=== PATIENT | female | born 1990 | race Caucasian/White ===

== ENCOUNTER 2022-11-11 15:10 | Emergency (ER) | payer MEDICAID, SELFPAY ==
[2022-11-11 15:11] VITALS: BP 138/75; PULSE 109; RESP 18; TEMP 35.9; O2SAT 94; BMI 21.2
--- NOTE | 2022-11-11 15:17 | EDS_ITS ---
HPI History of Present Illness Chief Complaint: Wound Informant: patient Narrative Narrative: Patient presents with 2 complaints. She has history of psychiatric illness and opioid problems and is treated for both of these. She has had problems with recurrent staph infections in many areas. Patient presents with about 2 days of breaking out on the face with some weeping lesions. They are not abscessing. They burn slightly. They are consistent with prior episodes of staph infections. She has no nausea vomiting fever chills or systemic symptoms. No nasal drainage. No sore throat. No dental pain. Patient also complains of some mild dysuria and slight odor of the urine for about 1 day. She states it valle just a small amount. No discharge. Last menstrual cycle was about the October and was normal timing. No pelvic pain. No flank or back pain. Again no nausea vomiting fevers or chills. She has had problems with UTIs in the past. Both of these individual problems are currently unstable. They are slowly worsening this prompted her arrival to the emergency department. She has benefited from treatment of both in the past. [facility] Medical History (Updated 11/11/22 @ 16:[address] Patrice Webb MD) Anxiety Bipolar disorder Depression Smoker Substance abuse Home Medications brexpiprazole 2 mg tablet (Rexulti) 2 mg PO DAILY 11/11/22 [History Last Taken Unknown] buprenorphine 100 mg/0.5 mL solution,exten.rel.subcutaneous syringe (Sublocade) 100 mg subcut QMONTH 11/11/22 [History Last Taken Unknown] cephalexin 500 mg capsule 500 mg PO Q6 #40 caps 11/11/22 [Rx Last Taken Unknown] clindamycin HCl 300 mg capsule (Cleocin HCl) 300 mg PO Q6H #40 caps 11/11/22 [Rx Last Taken Unknown] lamotrigine 150 mg tablet (Lamictal) 150 mg PO DAILY 11/11/22 [History Last Taken Unknown] mupirocin 2 % topical ointment 1 applic topical BID 7 days #15 grams 11/11/22 [Rx Last Taken Unknown] Allergy/AdvReac Type Severity Reaction Status Date / Time sulfamethoxazole Allergy Vomiting Verified 11/11/22 15:11 [From Bactrim] trimethoprim [From Bactrim] Allergy Vomiting Verified 11/11/22 15:11 Social History Smoking Status: Current every day smoker tobacco type: cigarettes ROS ROS ED ROS Narrative Negative other than recorded. Pertinent negatives are also listed Constitutional Constitutional ED: Denies fever(s) ENT ENT ED: Denies ear pain, rhinorrhea or sore throat Cardiovascular Cardiovascular: Denies chest pain or palpitations Respiratory/Chest Respiratory/Chest: Denies cough or dyspnea Gastrointestinal Gastrointestinal: Denies abdominal pain, diarrhea, nausea or vomiting Genitourinary Genitourinary ED: Reports dysuria and urinary frequency Musculoskeletal Musculoskeletal: Denies back pain or myalgias Integumentary Reports rash Endocrine Endocrinology: Denies polydipsia or polyuria Allergic/Immunologic Allergic/Immunologic ED: Denies urticaria EXAM Physical Exam Narrative Exam Narrative: Patient awake alert no acute distress. HEENT exam shows multiple areas with some crusted lesions on both sides of the face diffusely. These are not vesicular. None of these are abscess. No dental pain. Mucous membranes are normal without thrush. No cervical lymphadenopathy. Lungs are clear. Heart regular. No abdominal tenderness. No notable suprapubic tenderness. No CVA tenderness. Skin exam as above in the face. Otherwise normal. Patient awake alert appropriate. Const Vital Signs: 11/11/22 15:11 Temperature 96.7 F L Temperature Source Temporal Pulse Rate 109 H Respiratory Rate 18 Blood Pressure 138/75 H Blood Pressure Mean 96 Pulse Ox 94 Oxygen Delivery Method Room Air MDM MDM MDM Narrative Medical decision making narrative: Urine showed negative . It was positive for nitrites, leukocyte Estrace and was cloudy. It was a clean-catch. There were not a lot of white cells but she has multiple other indications of UTI on the urine and she has symptoms. I think treating her staph with both clindamycin and cephalexin is dual therapy should be appropriate for her staff and should treat any early UTI. Weeks plain times to follow-up. Because she has had this is a recurrent problem we will also have her use mupirocin ointment on the lesions and just inside the nasal passage for about a week. We discussed reasons to return. Although the patient's heart rate was a bit up when she comes in and is now down. I do not think this represents sepsis. I do not think she needs further blood work cultures lactate. She is awake alert nontoxic. She is not having nausea vomiting fevers chills or flank pain. She is able to eat and drink without vomiting. I think outpatient therapy and the work-up that is done is appropriate. Lab Data Attestation: I reviewed the patient's lab results. Labs: Laboratory Results - last 24 hr 11/11/22 15:20 Urine Color Straw Urine Clarity Cloudy Urine pH 8.0 Ur Specific [place] 1.010 Urine Protein 30 H Urine Glucose (UA) Normal Urine Ketones Negative Urine Occult Blood Negative Urine Nitrite Positive H Urine Bilirubin Negative Urine Urobilinogen Normal Ur Leukocyte Esterase 500 H Urine RBC 0 SEEN Urine WBC 0-5 SEEN Ur Squamous Epith Cells 0-5 SEEN Amorphous Sediment 2+ Urine Bacteria RARE Urine Mucus 0 SEEN Urine Test Negative Discharge Plan Triage Chief Complaint: Wound Other Complaint: Complaint ED Provider: Patrice Webb Dx/Rx/DC Orders Clinical Impression: Infection, skin, staph, UTI (urinary tract infection) Instructions: Urinary Tract Infections in Women, Staph MRSA Prescriptions: New clindamycin HCl [Cleocin HCl] 300 mg capsule 300 mg PO Q6H Qty: 40 0RF cephalexin [cephalexin] 500 mg capsule 500 mg PO Q6 Qty: 40 0RF mupirocin 2 % ointment 1 applic topical BID 7 Days Qty: 15 0RF No Action lamotrigine [Lamictal] 150 mg Tablet 150 mg PO DAILY Rexulti 2 mg Tablet 2 mg PO DAILY Sublocade 100 mg/0.5 mL Solution, Extended Rel Syringe 100 mg SUBCUT QMONTH Primary Care Provider: MATTHEW NASCIMENTO Referrals: NOT,DEFINED [Non-Staff] - Activity Restrictions/Additional Instructions: Follow-up with your primary physician, Dr. Nascimento if not improving in 3 days. Disposition Disposition: Home, Self Care
[2022-11-11 15:33] LABS: Mucous, Urine 0 SEEN /hpf (<or=2+); Red Blood Cells-Urine 0 SEEN /hpf (0-5)
[2022-11-11 15:41] LABS: Color, Urine Straw (Yellow); Glucose, Dipstick Normal (Normal); Ketone-Dipstick Negative (Negative); Leukocyte Esterase-Dipstick 500 /ul (Negative); Nitrite-Dipstick Positive (Negative); Occult Blood-Urine Negative /ul (Negative); Protein-Dipstick 30 mg/dl (Negative); Urine Bilirubin Dipstick Negative (Negative); Urine Clarity Cloudy (Clear); Urine Urobilinogen Normal (Normal)
[2022-11-11 15:50] LABS: Amorphous Sediment 2+; Bacteria RARE /hpf (None Seen); Squamous Epithelial Cells - UA 0-5 SEEN /hpf (5-10); White Blood Cells 0-5 SEEN /hpf (0-5)
[2022-11-11 15:51] LABS: Internal QC Validated? YES +Cl - CLEAR BKGD; Pregnancy, Urine Negative Negative
== END 2022-11-11 16:21 | disposition home or self-care (01) ==
PROVIDERS: Emergency Provider Emergency Medicine; Visit Provider Emergency Medicine
DX: N39.0 Urinary tract infection, site not specified (principal); F31.9 Bipolar disorder, unspecified; L08.9 Local infection of the skin and subcutaneous tissue, unspecified; B95.8 Unspecified staphylococcus as the cause of diseases classified elsewhere; F17.210 Nicotine dependence, cigarettes, uncomplicated; F41.9 Anxiety disorder, unspecified
CPT/HCPCS: 81001; 81025; 99283

== ENCOUNTER 2023-02-10 15:56 | Emergency (ER) | payer MEDICAID, SELFPAY ==
[2023-02-10 15:57] VITALS: BP 120/74; PULSE 77; RESP 17; TEMP 36.1; O2SAT 100; BMI 21.7
--- NOTE | 2023-02-10 16:14 | EDS_ITS ---
HPI History of Present Illness Chief Complaint: Wound Detail of Chief Complaint: Staph infection involving dorsum of right hand, left side of face and mid m Informant: patient Onset/Context/Timing Onset: Days (Onset 2 days ago) Context: Sudden Onset Timing: Continuous Quality: Redness, induration Location: Dorsum of hand, left side of face and left thigh Current Severity: Mild Maximum Severity: Mild Worsened by: Scratching and prior history of MRSA Relieved by: Nothing Associated Symptoms Associated Symptoms: Subjective fever on Wednesday Narrative Narrative: Patient is a 32-year-old female with history of psychiatric disorder who presents because of wounds to the left side of her face, dorsum of her hand and medial mid left thigh first noted on Wednesday. She complained of subjective fever. She did not take her temperature. She denied chills. She denies drainage from the areas. She has been scratching/picking at her skin. She does have remote history of IV drug use. She denies history of HIV. She denies history medic fever, heart murmur, SBE, Endo carditis or being immune suppressed. She does have allergy to sulfa. She has no signs or symptoms of . She states she is not sexually active. Patient was seen November 2022 for same. Prior similar symptoms: Yes Recent Illness/Hospitalization: No PFSH PFS Medical History Anxiety Bipolar disorder Depression Smoker Substance abuse Home Medications brexpiprazole 2 mg tablet (Rexulti) 2 mg PO DAILY 11/11/22 [History Last Taken Unknown] buprenorphine 100 mg/0.5 mL solution,exten.rel.subcutaneous syringe (Sublocade) 100 mg subcut QMONTH 11/11/22 [History Last Taken Unknown] cephalexin 500 mg capsule 500 mg PO Q6 #40 caps 11/11/22 [Rx Last Taken Unknown] clindamycin HCl 300 mg capsule (Cleocin HCl) 300 mg PO Q6H #40 caps 11/11/22 [Rx Last Taken Unknown] lamotrigine 150 mg tablet (Lamictal) 150 mg PO DAILY 11/11/22 [History Last Taken Unknown] mupirocin 2 % topical ointment 1 applic topical BID 7 days #15 grams 11/11/22 [Rx Last Taken Unknown] doxycycline monohydrate 100 mg capsule 100 mg PO BID #14 CAPSULES 02/10/23 [Rx Last Taken Unknown] Allergy/AdvReac Type Severity Reaction Status Date / Time sulfamethoxazole Allergy Vomiting Verified 02/10/23 15:57 [From Bactrim] trimethoprim [From Bactrim] Allergy Vomiting Verified 02/10/23 15:57 Social History (Updated 02/10/23 @ 16:[address] Keanu Espinoza MD) household members: none Smoking Status: Current every day smoker tobacco type: cigarettes substance use type: former substance user ROS ROS ED Constitutional Constitutional ED: Reports fever(s) and subjective; Denies chills, sweats or adela ght loss Eyes Eyes: Denies blurry vision, change in vision or diplopia ENT ENT ED: Denies ear pain, rhinorrhea or sore throat Cardiovascular Cardiovascular: Denies chest pain or palpitations Respiratory/Chest Respiratory/Chest: Denies cough, dyspnea or dyspnea on exertion Gastrointestinal Gastrointestinal: Denies nausea or vomiting Musculoskeletal Musculoskeletal: Denies arthralgias or myalgias Integumentary Reports rash Neurologic Neurologic: Denies paresthesias or weakness Hematologic/Lymphatic Hematologic/Lymphatic: Reports systems reviewed and no addt'l complaints, except as documented EXAM Physical Exam Const Vital Signs: 02/10/23 15:57 Temperature 97 F L Temperature Source Temporal Pulse Rate 77 Respiratory Rate 17 Blood Pressure 120/74 Blood Pressure Mean 89 Pulse Ox 100 Oxygen Delivery Method Room Air Positive well nourished and well developed General Appearance ED: well developed and NAD; Negative for cyanotic, diaphoretic or pallor HEENT Reports moist mucous membranes HEENT Narrative: Head is atraumatic normocephalic. Ears normal. Nares patent. Posterior pharynx unremarkable. Patient has 4 areas of excoriation with erythema and slight discharge noted. There is no fluctuance. There is no lymph Tritus and there is no preauricular lymphadenopathy. There is no submandibular adenopathy. Eyes PERRL and EOMs intact bilaterally General Eye ED: Negative for pale conjunctiva or scleral icterus Neck no lymphadenopathy, supple and no JVD Neck Narrative: Trachea is midline. Chest Wall inspection of chest normal and palpation of chest normal Resp normal respiratory effort and clear to auscultation bilaterally Cardio regular rate, regular rhythm, S1 normal heart sound, S2 normal heart sound and no murmurs Extremity Negative for normal to inspection Extremity Narrative: 2 areas of excoriation with erythema and induration dorsum of the right hand. There is no lymphangitis, there is no epitrochlear extra lymphadenopathy. There is no fluctuance. There is also 1 lesion mid medial left thigh. Again no lymphangitis or lymphadenopathy noted. Neuro oriented x3, CN's II-XII intact bilaterally and no sensory deficits noted Sensorium / Orientation: alert Psych mental status grossly normal Skin No no rashes or lesions noted, No no wounds and skin turgor normal General Skin Exam: elasticity normal; Negative for jaundice or pallor MDM MDM MDM Narrative Medical decision making narrative: Patient with multiple facial and extremity lesions that are infected. This may represent a strep or staph infection. Because of allergy to sulfa we will treat with doxycycline. Patient was recently seen in ER, November 2022. History & Record Review Discussion w/independent historian: Patient Additional record(s) reviewed:: Prior ED visit Treatment and Re-Evaluation :: Patient was treated with doxycycline. She was discharged to home with p rescription for doxycycline. Discharge Plan Triage Chief Complaint: Wound ED Provider: Keanu Espinoza Dx/Rx/DC Orders Clinical Impression: Cellulitis of finger of right hand, Cellulitis of left thigh, Cellulitis of face Instructions: Cellulitis Dc Prescriptions: New doxycycline monohydrate 100 mg capsule 100 mg PO BID Qty: 14 0RF No Action lamotrigine [Lamictal] 150 mg Tablet 150 mg PO DAILY Rexulti 2 mg Tablet 2 mg PO DAILY Sublocade 100 mg/0.5 mL Solution, Extended Rel Syringe 100 mg SUBCUT QMONTH clindamycin HCl [Cleocin HCl] 300 mg capsule 300 mg PO Q6H Qty: 40 0RF cephalexin [cephalexin] 500 mg capsule 500 mg PO Q6 Qty: 40 0RF mupirocin 2 % ointment 1 applic topical BID 7 Days Qty: 15 0RF Primary Care Provider: Care Physician,No Primary Referrals: [facility] Doctor,Out of [Non-Staff] - 3-5 Days Disposition Disposition: Home, Self Care
[2023-02-10] MEDS: Doxycycline 100 MG CAPSULE PO (16:34)
== END 2023-02-10 16:42 | disposition home or self-care (01) ==
PROVIDERS: Emergency Provider Emergency Medicine; Visit Provider Emergency Medicine
DX: L03.116 Cellulitis of left lower limb (principal); F31.9 Bipolar disorder, unspecified; F17.210 Nicotine dependence, cigarettes, uncomplicated; L03.113 Cellulitis of right upper limb; L03.211 Cellulitis of face; L03.114 Cellulitis of left upper limb
CPT/HCPCS: 99283

== ENCOUNTER 2023-03-05 15:55 | Emergency (ER) | payer MEDICAID, SELFPAY ==
[2023-03-05 15:56] VITALS: BP 122/91; PULSE 93; RESP 18; TEMP 35.9; O2SAT 100; BMI 20.7
--- NOTE | 2023-03-05 16:57 | ED.VIS.DENTA ---
HPI History of Present Illness Chief Complaint: Dental Informant: patient Narrative Narrative: Chronic dental issues in the right maxillary molars and the left mandibular molars, hurting worse, not tasting purulence, and weak/tired in the last week. Subjective fevers with sweats but has not checked her temperature. She states 1 or 2 weeks ago, she relapsed on IV fentanyl. She used for 3 days and then stopped, she had withdrawals, and has felt poorly ever since. In addition, she has not sore ulcerative lesion where she injected, and a couple other ulcerative lesions in the right upper extremity separate from this where she did not inject. [facility] Medical History Anxiety Bipolar disorder Depression Smoker Substance abuse Home Medications brexpiprazole 2 mg tablet (Rexulti) 2 mg PO DAILY 11/11/22 [History Last Taken Unknown] buprenorphine 100 mg/0.5 mL solution,exten.rel.subcutaneous syringe (Sublocade) 100 mg subcut QMONTH 11/11/22 [History Last Taken Unknown] lamotrigine 150 mg tablet (Lamictal) 150 mg PO DAILY 11/11/22 [History Last Taken Unknown] mupirocin 2 % topical ointment 1 applic topical BID 7 days #15 grams 11/11/22 [Rx Last Taken Unknown] clindamycin HCl 300 mg capsule (Cleocin HCl) 300 mg PO Q6H #40 caps 03/05/23 [Rx Last Taken Unknown] Allergy/AdvReac Type Severity Reaction Status Date / Time sulfamethoxazole Allergy Vomiting Verified 03/05/23 15:56 [From Bactrim] trimethoprim [From Bactrim] Allergy Vomiting Verified 03/05/23 15:56 Social History household members: none Smoking Status: Current every day smoker tobacco type: cigarettes substance use type: former substance user ROS ROS ED Constitutional Constitutional ED: Reports fever(s), subjective and sweats ENT ENT ED: Reports dental pain; Denies sinus pain or sinus pressure Cardiovascular Cardiovascular: Denies chest pain or palpitations Respiratory/Chest Respiratory/Chest: Denies cough or dyspnea Gastrointestinal Gastrointestinal: Denies abdominal pain, nausea or vomiting Musculoskeletal Musculoskeletal: Reports as per HPI and extremity pain; Denies back pain or neck pain Integumentary Reports as per HPI and rash; Denies abscess Neurologic Neurologic: Denies headache(s), paresthesias or weakness EXAM Physical Exam Const Vital Signs: 03/05/23 15:56 Temperature 96.6 F L Temperature Source Temporal Pulse Rate 93 Respiratory Rate 18 Blood Pressure 122/91 H Blood Pressure Mean 101 Pulse Ox 100 Oxygen Delivery Method Room Air Positive well nourished and well developed General Appearance ED: well developed and NAD HEENT HEENT Narrative: Dentition decay down to the gumline, 2 right maxillary molars and 1 left mandibular molar. No abscess or discharge or bleeding. No trismus. No tongue elevation. Face and Sinus: sinuses nontender Eyes PERRL and EOMs intact bilaterally Neck no lymphadenopathy and supple Chest Wall inspection of chest normal Resp normal respiratory effort, no retractions and clear to auscultation bilaterally Cardio regular rate, regular rhythm and no murmurs Rate: Negative for tachycardic GI normal to inspection, nondistended, normoactive bowel sounds and non-tender Extremity Extremity Narrative: 2 mildly tender ulcerated scabbed lesions with mild amount of surrounding erythema in the right forearm, 2 smaller ones distal to this in the right dorsal hand. Patient states she injected at the distal forearm lesion only. No epitrochlear lymphadenopathy, no lymphangitis, full range of motion throughout all joints of the right upper extremity, and no abscesses. No other lesions. I inspected her fingers on both hands, there are no splinter hemorrhages, [place] lesions, or [place] nodes. Neuro oriented x3, CN's II-XII intact bilaterally, no focal motor deficits and no sensory deficits noted Sensorium / Orientation: alert Gait (Neuro): normal gait Psych mental status grossly normal Skin Skin Narrative: Right upper extremity see above MDM MDM MDM Narrative Medical decision making narrative: Reasonable to put this nonseptic, well-appearing patient on antibiotics for her dentition. However, she has a couple of lesions on her forearm that are concerning after using IV drugs there, they appear to be patchy infections of strep, less likely MRSA. However, she is at risk for MRSA. I think the best course of action would be to get a CBC, blood cultures, and give her a dose of IV vancomycin before sending her home on oral antibiotics. She was amenable to that, which was done. Patient states she recently was on some antibiotics that she did not tolerate well, reviewing old records it was doxycycline. She was on clindamycin and cephalexin a couple months prior to that and tolerated them both well so I am putting her on clindamycin which I think would be the best coverage for all of this. History & Record Review Additional record(s) reviewed:: Prior ED visit Lab Data Attestation: I reviewed the patient's lab results. Labs: Laboratory Results - last 24 hr 03/05/23 17:23 WBC 4.3 L RBC 4.48 Hgb 11.9 L Hct 37.8 MCV 84.4 MCH 26.6 L MCHC 31.5 L RDW Std Deviation 43.8 RDW Coeff of Cyndy 14.3 Plt Count 191 MPV 10.6 Immature Gran % (Auto) 0.200 Neut % (Auto) 60.5 Lymph % (Auto) 29.2 [place] % (Auto) 5.4 Eos % (Auto) 4.2 Baso % (Auto) 0.5 Absolute Neuts (auto) 2.6 Absolute Lymphs (auto) 1.25 Nucleated RBC % 0 Discharge Plan Triage Chief Complaint: Dental ED Provider: Sushant Damon Dx/Rx/DC Orders Clinical Impression: Cellulitis of right upper extremity, Infected dental caries, Drug abuse, IV Instructions: ED Cellulitis, ED Dental Pain Prescriptions: Continued lamotrigine [Lamictal] 150 mg Tablet 150 mg PO DAILY Rexulti 2 mg Tablet 2 mg PO DAILY Sublocade 100 mg/0.5 mL Solution, Extended Rel Syringe 100 mg SUBCUT QMONTH mupirocin 2 % ointment 1 applic topical BID 7 Days Qty: 15 0RF clindamycin HCl [Cleocin HCl] 300 mg capsule 300 mg PO Q6H Qty: 40 0RF Discontinued cephalexin [cephalexin] 500 mg capsule 500 mg PO Q6 Qty: 40 0RF doxycycline monohydrate 100 mg capsule 100 mg PO BID Qty: 14 0RF Primary Care Provider: Uli Nascimento Referrals: Uli Nascimento MD [Primary Care Provider] - Dentist,Your [STAFF PHYSICIAN] - As soon as possible Doctor,Your [Non-Staff] - 3-5 Days if not improving Disposition Disposition: Home, Self Care
[2023-03-05 17:34] LABS: Absolute Lymphocyte Count 1.25 X10^3/uL (0.83-4.51); Absolute Neutrophil Count 2.6 X10^3/uL (2.0-7.7); Basophil# 0.02 X10^3/uL; Basophil% 0.5 % (0-1); Eosinophil# 0.18 X10^3/uL; Eosinophils% 4.2 % (0-5); Hematocrit 37.8 % (37-47); Hemoglobin 11.9 g/dL (12.0-15.0); Lymphocyte # 1.25 X10^3/ul (0.83-4.51); Lymphocyte % 29.2 % (19-41); Mean Corp Hgb Conc 31.5 g/dL (32-36); Mean Corpuscular Hgb 26.6 pg (27.0-32.0); Mean Corpuscular Volume 84.4 fL (81-99); Mean Platelet Vol. 10.6 fl (6.2-12.0); Monocyte# 0.23 X10^3/uL; Monocyte% 5.4 % (0-10); NRBC Flagged by Analyzer 0 % (0-5); Neutrophil # 2.59 X10^3/uL (2.7-7.7); Neutrophil % 60.5 % (47-70); Platelet Count 191 K/mm3 (150-450); RBC Distribution Width CV 14.3 % (11.6-14.6); RBC Distribution Width SD 43.8 fl (35.1-43.9); Red Blood Count 4.48 M/mm3 (4.2-5.4); White Blood Count 4.3 K/mm3 (4.4-11.0)
== END 2023-03-05 18:45 | disposition home or self-care (01) ==
PROVIDERS: Emergency Provider Emergency Medicine; PCP Pediatrics; Visit Provider Emergency Medicine
DX: L03.113 Cellulitis of right upper limb (principal); F11.10 Opioid abuse, uncomplicated; F31.9 Bipolar disorder, unspecified; F17.210 Nicotine dependence, cigarettes, uncomplicated; K02.9 Dental caries, unspecified; Z79.899 Other long term (current) drug therapy
CPT/HCPCS: 36415; 85025; 87040; 99283; J7050; A4216

== ENCOUNTER 2023-03-30 08:40 | Emergency (ER) | payer MEDICAID, SELFPAY ==
[2023-03-30 08:42] VITALS: BP 146/93; PULSE 118; RESP 26; TEMP 36.1; O2SAT 100; BMI 20.4
--- NOTE | 2023-03-30 08:54 | EX.ED.DYSGE1 ---
HPI History of Present Illness Chief Complaint: Wound Detail of Chief Complaint: Skin lesions Informant: patient Narrative Narrative: Patient presents to the emergency department complaint of lesions on her skin that she is concerned about staph. Patient has had similar lesions in the past associated with her illicit drug use. Patient states that she was here about a month ago and started on clindamycin which she did well with. Patient states that she relapsed using fentanyl which she uses IV. Her last use was about 4 days ago. Patient feels like she is going through withdrawal but does not want inpatient help as she does sees somebody and has an appointment with physician tomorrow. Patient feels sweaty but she states that she just walked from [facility] which is where she lives. PFSH PFS Medical History Anxiety Bipolar disorder Depression Smoker Substance abuse Home Medications brexpiprazole 2 mg tablet (Rexulti) 2 mg PO DAILY 11/11/22 [History Last Taken Unknown] buprenorphine 100 mg/0.5 mL solution,exten.rel.subcutaneous syringe (Sublocade) 100 mg subcut QMONTH 11/11/22 [History Last Taken Unknown] lamotrigine 150 mg tablet (Lamictal) 150 mg PO DAILY 11/11/22 [History Last Taken Unknown] mupirocin 2 % topical ointment 1 applic topical BID 7 days #15 grams 11/11/22 [Rx Last Taken Unknown] clindamycin HCl 300 mg capsule (Cleocin HCl) 300 mg PO Q6H #40 caps 03/05/23 [Rx Last Taken Unknown] clindamycin HCl 300 mg capsule (Cleocin HCl) 300 mg PO Q6H #40 CAPSULES 03/30/23 [Rx Last Taken Unknown] Allergy/AdvReac Type Severity Reaction Status Date / Time sulfamethoxazole Allergy Vomiting Verified 03/30/23 08:42 [From Bactrim] trimethoprim [From Bactrim] Allergy Vomiting Verified 03/30/23 08:42 Social History household members: none Smoking Status: Current every day smoker tobacco type: cigarettes substance use type: former substance user ROS ROS ED Review of Systems ROS Unobtainable: other Constitutional Constitutional ED: Reports lethargy; Denies chills, fever(s), sweats or weight loss Eyes Eyes: Denies blurry vision, change in vision or diplopia ENT ENT ED: Denies rhinorrhea or sore throat Cardiovascular Cardiovascular: Denies chest pain, orthopnea or racing heartbeat Respiratory/Chest Respiratory/Chest: Denies cough, dyspnea, dyspnea on exertion, orthopnea or sputum Gastrointestinal Gastrointestinal: Denies abdominal pain, diarrhea, nausea or vomiting Genitourinary Genitourinary ED: Denies dysuria, hematuria or urinary frequency Musculoskeletal Musculoskeletal: Denies arthralgias, back pain, myalgias or neck pain Integumentary Reports rash; Denies abscess or Abrasions Neurologic Neurologic: Denies headache(s) or weakness Psychiatric Psychiatric: Denies anxiety, depression or suicidal thoughts Endocrine Endocrinology: Denies polydipsia, polyphagia or polyuria Hematologic/Lymphatic Hematologic/Lymphatic: Denies easy bleeding, easy bruising or lymphadenopathy Allergic/Immunologic Allergic/Immunologic ED: Denies mouth swelling, tongue swelling or urticaria EXAM Physical Exam Const Vital Signs: 03/30/23 08:42 Temperature 96.9 F L Temperature Source Temporal Pulse Rate 118 H Respiratory Rate 26 H Blood Pressure 146/93 H Blood Pressure Mean 110 Pulse Ox 100 Oxygen Delivery Method Room Air Positive well nourished and well developed General Appearance ED: well developed and NAD HEENT Reports TM's clear and moist mucous membranes normocephalic and atraumatic; Negative for trauma or tenderness Tympanic Membrane ED: Yes TM's clear Eyes PERRL and EOMs intact bilaterally General Eye ED: Negative for pale conjunctiva or scleral icterus Neck no lymphadenopathy, supple and no JVD General: Negative for tenderness Chest Wall inspection of chest normal and palpation of chest normal Chest: Negative for tenderness Resp normal respiratory effort and clear to auscultation bilaterally Effort and Inspection: Negative for respiratory distress or pain with movement Auscultation: Negative for rhonchi, wheezes or diminished lung sounds Cardio regular rhythm, S1 normal heart sound, S2 normal heart sound and no murmurs Rate: tachycardic Peripheral Pulses: pulses 2+ throughout GI normal to inspection, nondistended, normoactive bowel sounds, soft to palpation, non-tender, non-distended and no masses Back/Spine no CVA tenderness and no thoracic nor lumbar tenderness Extremity normal to inspection General Extremety ED: Negative for edema General Extremity: Negative for edema Neuro oriented x3, CN's II-XII intact bilaterally, no sensory deficits noted and gait normal Sensorium / Orientation: awake, alert, oriented to person, oriented to place and oriented to time Motor Exam: strength 5/5 throughout and strength abnormal Psych mental status grossly normal Skin Skin Narrative: Patient with multiple shallow ulcerations involving the skin of the forearms as well as her face and left thigh. No discrete abscesses noted. Or fluctuance. There are no significant cellulitic changes noted. MDM MDM MDM Narrative Medical decision making narrative: Patient presents with skin lesions which she has had prior from IV drug abuse. I feel patient likely going through opiate withdrawal but does not want inpatient care. Patient states that she gets a monthly shot with addiction medicine physician. She is scheduled to see physician tomorrow. I do not feel patient is septic. Patient will be given a prescription for clindamycin first dose in the emergency department. Patient advised return if fevers, increased pain, redness, swelling, or condition worsening way. Discharge Plan Triage Chief Complaint: Wound ED Provider: Drea Plummer Dx/Rx/DC Orders Clinical Impression: Infection, skin, staph Instructions: Staph Infection (Non-MRSA), Staph MRSA Prescriptions: New clindamycin HCl [Cleocin HCl] 300 mg capsule 300 mg PO Q6H Qty: 40 0RF No Action lamotrigine [Lamictal] 150 mg Tablet 150 mg PO DAILY Rexulti 2 mg Tablet 2 mg PO DAILY Sublocade 100 mg/0.5 mL Solution, Extended Rel Syringe 100 mg SUBCUT QMONTH mupirocin 2 % ointment 1 applic topical BID 7 Days Qty: 15 0RF clindamycin HCl [Cleocin HCl] 300 mg capsule 300 mg PO Q6H Qty: 40 0RF Primary Care Provider: Uli Nascimento Referrals: Uli Nascimento MD [Primary Care Provider] - 3-5 Days Disposition Disposition: Home, Self Care
[2023-03-30] MEDS: Clindamycin HCl 150 MG Capsule 300 MG PO (08:58)
== END 2023-03-30 09:21 | disposition home or self-care (01) ==
PROVIDERS: Emergency Provider Emergency Medicine; Visit Provider Emergency Medicine
DX: L08.9 Local infection of the skin and subcutaneous tissue, unspecified (principal); F31.9 Bipolar disorder, unspecified; F17.210 Nicotine dependence, cigarettes, uncomplicated; Z79.899 Other long term (current) drug therapy
CPT/HCPCS: 99283

== ENCOUNTER 2023-04-05 11:45 | Inpatient (IN) | payer MEDICAID, SELFPAY ==
[2023-04-05 11:45] VITALS: BP 160/94; PULSE 114; RESP 24; TEMP 35.9; O2SAT 98; BMI 20.9
--- NOTE | 2023-04-05 12:01 | EX.ED.DYSGE1 ---
HPI History of Present Illness Chief Complaint: Substance Abuse Narrative Narrative: Patient presents with request for detox. She uses fentanyl daily about a half a gram. She injects. She was recently seen in the ED for superficial skin infection and she is on antibiotics. She has no fever chills or chest pain. [facility] Medical History Anxiety Bipolar disorder Depression Smoker Substance abuse Home Medications brexpiprazole 2 mg tablet (Rexulti) 2 mg PO DAILY 11/11/22 [History Last Taken Unknown] buprenorphine 100 mg/0.5 mL solution,exten.rel.subcutaneous syringe (Sublocade) 100 mg subcut QMONTH 11/11/22 [History Last Taken Unknown] lamotrigine 150 mg tablet (Lamictal) 150 mg PO DAILY 11/11/22 [History Last Taken Unknown] mupirocin 2 % topical ointment 1 applic topical BID 7 days #15 grams 11/11/22 [Rx Last Taken Unknown] clindamycin HCl 300 mg capsule (Cleocin HCl) 300 mg PO Q6H #40 caps 03/05/23 [Rx Last Taken Unknown] clindamycin HCl 300 mg capsule (Cleocin HCl) 300 mg PO Q6H #40 CAPSULES 03/30/23 [Rx Last Taken Unknown] Allergy/AdvReac Type Severity Reaction Status Date / Time sulfamethoxazole Allergy Vomiting Verified 04/05/23 11:47 [From Bactrim] trimethoprim [From Bactrim] Allergy Vomiting Verified 04/05/23 11:47 Social History household members: none Smoking Status: Current every day smoker tobacco type: cigarettes substance use type: former substance user ROS ROS ED ROS Narrative Past medical history: Reviewed Medications: Reviewed Social history: Noncontributory Review of systems: All systems negative except as indicated General: No fever Eyes: No visual changes ENT: No upper airway congestion, normal voice Neck: No neck pain Cardiovascular: No chest pain Respiratory: No shortness of breath or cough Gastrointestinal: No abdominal pain. Some nausea Genitourinary: No dysuria Musculoskeletal: Denies myalgias no difficulty with ambulation Skin: Recent right arm infection Neurological: No memory loss, confusion or any focal weakness EXAM Physical Exam Narrative Exam Narrative: Physical exam General: Patient appears relatively comfortable she does not appear ill Head: Normocephalic, Atraumatic Eyes: Conjunctiva not pale ENT: Moist mucous membranes Neck: Supple, Nontender, No lymphadenopathy Cardiovascular: Regular rate, Regular rhythm. No murmurs Respiratory: No distress, CTA bilaterally Abdomen: Soft, Nontender, Nondistended Back: Nontender, Normal Inspection. Negative for: CVA tenderness Extremities: 3 small areas of wounds that are healing quite well there is no surrounding cellulitis, no abscess it is on the right upper extremity in the forearm region. Skin: As above no signs of cellulitis just wounds. Neurological: Alert, Normal Strength, Normal Sensation Psychological: Normal affect Const Vital Signs: 04/05/23 11:45 Temperature 96.6 F L Temperature Source Temporal Pulse Rate 114 H Respiratory Rate 24 H Blood Pressure 160/94 H Blood Pressure Mean 116 Pulse Ox 98 Oxygen Delivery Method Room Air MDM MDM MDM Narrative Medical decision making narrative: Is medically cleared. She is a little tachycardic and tachypneic and give her Phenergan and clonidine. Otherwise I will admit her to the hospitalist. She truly does want detox. Lab Data Labs: Laboratory Results - last 24 hr 04/05/23 04/05/23 12:15 12:15 WBC 7.1 RBC 4.18 L Hgb 11.2 L Hct 35.1 L MCV 84.0 MCH 26.8 L MCHC 31.9 L RDW Std Deviation 44.9 H RDW Coeff of Cyndy 14.6 Plt Count 180 MPV 11.3 Immature Gran % (Auto) 0.300 Neut % (Auto) 69.4 Lymph % (Auto) 20.3 [place] % (Auto) 7.2 Eos % (Auto) 2.5 Baso % (Auto) 0.3 Absolute Neuts (auto) 5.0 Absolute Lymphs (auto) 1.45 Nucleated RBC % 0 Sodium 138 Potassium 3.7 Chloride 103 Carbon Dioxide 29.0 Anion Gap 6 BUN 15 Creatinine 0.79 Estim Creat Clear Calc 83.00 Est GFR (MDRD) Af Amer 106 Est GFR (MDRD) Non-Af 88 BUN/Creatinine Ratio 18.9 Glucose 120 H Calcium 9.5 Total Bilirubin 0.20 AST 19 ALT 20 Alkaline Phosphatase 89 Total Protein 7.8 Albumin 3.8 Globulin 4.0 Albumin/Globulin Ratio 1.0 Discharge Plan Triage Chief Complaint: Substance Abuse ED Provider: Rafita Barbosa Dx/Rx/DC Orders Clinical Impression: Infection, skin, staph, Opiate addiction, Opiate withdrawal Prescriptions: No Action lamotrigine [Lamictal] 150 mg Tablet 150 mg PO DAILY Rexulti 2 mg Tablet 2 mg PO DAILY Sublocade 100 mg/0.5 mL Solution, Extended Rel Syringe 100 mg SUBCUT QMONTH mupirocin 2 % ointment 1 applic topical BID 7 Days Qty: 15 0RF clindamycin HCl [Cleocin HCl] 300 mg capsule 300 mg PO Q6H Qty: 40 0RF clindamycin HCl [Cleocin HCl] 300 mg capsule 300 mg PO Q6H Qty: 40 0RF Primary Care Provider: Ariela Nascimento Referrals: Ariela Nascimento [Other] Disposition Disposition: Acute Care Hospital [facility]
[2023-04-05 12:23] LABS: Absolute Lymphocyte Count 1.45 X10^3/uL (0.83-4.51); Basophil# 0.02 X10^3/uL; Basophil% 0.3 % (0-1); Eosinophil# 0.18 X10^3/uL; Eosinophils% 2.5 % (0-5); Hematocrit 35.1 % (37-47); Hemoglobin 11.2 g/dL (12.0-15.0); Lymphocyte # 1.45 X10^3/ul (0.83-4.51); Lymphocyte % 20.3 % (19-41); Mean Corp Hgb Conc 31.9 g/dL (32-36); Mean Corpuscular Hgb 26.8 pg (27.0-32.0); Mean Platelet Vol. 11.3 fl (6.2-12.0); Monocyte# 0.51 X10^3/uL; Monocyte% 7.2 % (0-10); NRBC Flagged by Analyzer 0 % (0-5); Neutrophil # 4.95 X10^3/uL (2.7-7.7); Neutrophil % 69.4 % (47-70); Platelet Count 180 K/mm3 (150-450); RBC Distribution Width CV 14.6 % (11.6-14.6); RBC Distribution Width SD 44.9 fl (35.1-43.9); Red Blood Count 4.18 M/mm3 (4.2-5.4); White Blood Count 7.1 K/mm3 (4.4-11.0)
[2023-04-05 12:41] LABS: AST(SGOT) 19 U/L (15-37); Alanine Aminotransfer ALT/SGPT 20 U/L (13-56); Albumin, Serum 3.8 g/dL (3.2-5.0); Alkaline Phosphatase 89 U/L (45-117); Anion Gap 6 (5-15); BUN 15 mg/dL (7-18); BUN/Creat Ratio 18.9 RATIO (10-20); Calcium,Total 9.5 mg/dL (8.5-10.1); Chloride 103 mmol/L (98-107); Creatinine, Serum 0.79 mg/dL (0.55-1.02); EST Glomerular Filtration Rate 88 mL/min (>60); Est Glom Filt Rate - Afr Amer 106 mL/min (>60); Glucose 120 mg/dL (74-106); Potassium 3.7 mmol/L (3.5-5.1); Protein, Total 7.8 g/dL (6.4-8.2); Sodium Level 138 mmol/L (136-145)
--- NOTE | 2023-04-05 12:54 | PCM.HP.STD ---
HPI - General General Date of Admission: 04/05/23 Date of Service: 04/05/23 Chief Complaint: detox HPI Narrative OSEAS PLATT, is a 32 F with a PMH as outlined including chronic substance abuse who was admitted via the ED on 04/05/2023 for opioid detox. She uses fentanyl daily. She shoots up fentanyl IV. says she was recently seen in the ED for superficial skin infection due to the IV drug use. She was discharged home on oral clinddamycin. She states she tried to detox at home but was unsuccessful because she came into the ED. She denies any tremors or shakes, any abdominal pain or cramps or increased sweating. Review of systems otherwise negative. Vitals in the ED were blood pressure 160/94, pulse rate of 114, respiratory rate of 24 and temperature of 96.7 Fahrenheit. She was saturating at 98% on room air. CBC showed WBC of 7.1 with hemoglobin of 11.2 and platelets of 118. Chemistry was unremarkable. She is being admitted to be managed for acute opiate withdrawal. [facility] Medical History (Updated 04/05/23 @ 14:10 by Stephanie Gutierrez) Anxiety Bipolar disorder Depression Smoker Substance abuse Home Medications brexpiprazole 2 mg tablet (Rexulti) 2 mg PO DAILY MOOD 11/11/22 [History Last Taken 1 Month Ago ~03/05/23] buprenorphine 100 mg/0.5 mL solution,exten.rel.subcutaneous syringe (Sublocade) 100 mg subcut QMONTH OPIOID ADDICITION 11/11/22 [History Last Taken 2 Months Ago ~02/03/23] lamotrigine 150 mg tablet (Lamictal) 150 mg PO DAILY MOOD 11/11/22 [History Last Taken 1 Month Ago ~03/05/23] clindamycin HCl 300 mg capsule (Cleocin HCl) 300 mg PO Q6H ANTIBIOTIC 04/05/23 [History Last Taken 04/05/23] Allergy/AdvReac Type Severity Reaction Status Date / Time sulfamethoxazole Allergy Vomiting Verified 04/05/23 11:47 [From Bactrim] trimethoprim [From Bactrim] Allergy Vomiting Verified 04/05/23 11:47 Social History household members: none Smoking Status: Current every day smoker tobacco type: cigarettes substance use type: former substance user ROS Review of Systems ROS Unobtainable: Denies due to encephalopathy Constitutional Constitutional: Denies anorexia, change in weight, chills, fatigue, fever(s), malaise or weakness Eyes Eyes: Denies change in vision ENT HEENT: Denies dysphagia or headache(s) Cardiovascular Cardiovascular: Denies chest pain, dyspnea on exertion, edema, lightheadedness or orthopnea Respiratory/Chest Respiratory/Chest: Denies cough, dyspnea, productive cough, shortness of breath at rest or shortness of breath with exertion Gastrointestinal Gastrointestinal: Reports melena; Denies abdominal pain, constipation, diarrhea, nausea or vomiting Neurologic Neurologic: Denies confusion or dizziness Psychiatric Psychiatric: Denies anxiety or depression Endocrine Endocrinology: Denies change in body appearance Hematologic/Lymphatic Hematologic/Lymphatic: Denies anemia Vital Signs Vital Signs Vital Signs: 04/05/23 11:45 Temperature 96.6 F L Temperature Source Temporal Pulse Rate 114 H Respiratory Rate 24 H Blood Pressure 160/94 H Blood Pressure Mean 116 Pulse Ox 98 Oxygen Delivery Method Room Air Weight Weight: 118 lb 3.2 oz Body Mass Index (BMI) 20.9 Physical Exam Const alert, oriented x3, no apparent distress and average body habitus General Appearance: cooperative HEENT normocephalic, head/scalp atraumatic, hearing grossly normal bilaterally, moist oral mucous membranes and oropharynx normal Mouth: oral and palatal mucosa normal Eyes PERRL and EOMs intact bilaterally Neck no lymphadenopathy and supple Resp normal respiratory effort, no retractions, no use of accessory muscles and clear to auscultation bilaterally Cardio S1 normal heart sound, S2 normal heart sound and no murmurs Cardio Narrative: tachycardic GI normal to inspection, nondistended, normoactive bowel sounds, soft to palpation, non-tender and non-distended Extremity normal to inspection, full ROM and no clubbing, cyanosis or edema Skin Skin Narrative: Superficial resolving blisters and ulcerations on her upper extremities and left inner thigh. These are from staph infection which is resolving. Neuro oriented x3 and CN's II-XII intact bilaterally Sensorium / Orientation: awake and alert Motor Exam: strength 5/5 throughout Psych affect normal Results Lab / Micro Data Result Diagrams: 04/05/23 12:15 04/05/23 12:15 Labs: Laboratory Results - last 24 hr 04/05/23 12:15: WBC 7.1, RBC 4.18 L, Hgb 11.2 L, Hct 35.1 L, MCV 84.0, MCH 26.8 L, MCHC 31.9 L, RDW Std Deviation 44.9 H, RDW Coeff of Cyndy 14.6, Plt Count 180, MPV 11.3, Immature Gran % (Auto) 0.300, Neut % (Auto) 69.4, Lymph % (Auto) 20.3, [place] % (Auto) 7.2, Eos % (Auto) 2.5, Baso % (Auto) 0.3, Absolute Neuts (auto) 5.0, Absolute Lymphs (auto) 1.45, Nucleated RBC % 0 04/05/23 12:15: Sodium 138, Potassium 3.7, Chloride 103, Carbon Dioxide 29.0, Anion Gap 6, BUN 15, Creatinine 0.79, Estim Creat Clear Calc 83.00, Est GFR (MDRD) Af Amer 106, Est GFR (MDRD) Non-Af 88, BUN/Creatinine Ratio 18.9, Glucose 120 H, Calcium 9.5, Total Bilirubin 0.20, AST 19, ALT 20, Alkaline Phosphatase 89, Total Protein 7.8, Albumin 3.8, Globulin 4.0, Albumin/Globulin Ratio 1.0 Assessment & Plan Assessment/Plan (1) Infection, skin, staph: (2) Opiate addiction: (3) Opiate withdrawal: PLAN: Plan #Acute opioid withdrawal Start on opioid withdrawal protocol with buprenorphine. Adjunctive meds for symptomatic relief. Urine tox pending. #Tachypnea and tachycardia: Etiology unclear. May be related to opioid withdrawal. Will monitor closely for now. Check TSH. #Superficial staph skin infection: Likely due to IV drug use. Was seen in the ED a few days ago and started on clindamycin. We will continue to finish the course. #Seizure disorder: On Lamictal DVT prophylaxis: Low risk. Encouraged to ambulate. Charges/Coding Visit Charges Inpatient E&M: 90878 Init Hosp L3
--- NOTE | 2023-04-05 13:03 | NURSING ---
MED SURG KOR[facility] OPIATE DETOX
[2023-04-05 13:11] LABS: Internal QC Validated? YES +Cl - CLEAR BKGD; Mucous, Urine 0 SEEN /hpf (<or=2+); Red Blood Cells-Urine 0 SEEN /hpf (0-5)
[2023-04-05] MEDS: proMETHazine 25 MG Tablet 12.5 MG PO (13:12)
[2023-04-05 13:15] LABS: Pregnancy, Urine Negative Negative
[2023-04-05 13:20] LABS: Color, Urine Yellow (Yellow); Glucose, Dipstick Normal (Normal); Ketone-Dipstick Negative (Negative); Leukocyte Esterase-Dipstick 25 /ul (Negative); Nitrite-Dipstick Negative (Negative); Occult Blood-Urine Negative /ul (Negative); Protein-Dipstick 15 mg/dl (Negative); Urine Bilirubin Dipstick Negative (Negative); Urine Clarity Sl. Cloudy (Clear); Urine Urobilinogen Normal (Normal)
[2023-04-05 13:26] LABS: Amphetamine Urine VISTA POSITIVE (<1000 ng/mL); Barbiturate Urine VISTA NEGATIVE (< 200 ng/mL); Benzodiazepine Urine VISTA NEGATIVE (< 200 ng/mL); Cocaine Urine VISTA NEGATIVE (< 300 ng/mL); Ecstacy Urine VISTA POSITIVE (< 500 ng/mL); Methadone Urine VISTA NEGATIVE (< 300 ng/mL); PCP Urine VISTA NEGATIVE (< 25 ng/mL); THC Urine VISTA NEGATIVE (< 50 ng/mL); Vista UDS pH Range 5
[2023-04-05 13:27] LABS: White Blood Cells 0-5 SEEN /hpf (0-5)
[2023-04-05 13:28] LABS: Bacteria RARE /hpf (None Seen); Squamous Epithelial Cells - UA 0-5 SEEN /hpf (5-10)
[2023-04-05 13:35] VITALS: BP 139/88; PULSE 100; RESP 16; TEMP 36.6; O2SAT 96
[2023-04-05] MEDS: cloNIDine HCl 0.2 MG Tablet PO (13:46)
[2023-04-05 14:00] VITALS: BMI 20.5
--- NOTE | 2023-04-05 14:00 | NURSING ---
pt arrived to unit in street clothes this nurse to room and retrieved items under pillow and instructed patient on items to bin.
[2023-04-05 14:04] VITALS: BP 136/95; PULSE 109; RESP 18; TEMP 36.7; O2SAT 100
[2023-04-05] MEDS: Gabapentin 300 MG Capsule PO (14:31)
[2023-04-05] MEDS: Clindamycin HCl 150 MG Capsule 300 MG PO ×3 (14:31→23:04)
[2023-04-05 18:04] VITALS: BP 116/77; PULSE 71; RESP 18; TEMP 36.6; O2SAT 99
[2023-04-05 23:00] VITALS: BP 105/68; PULSE 74; RESP 16; TEMP 36.7; O2SAT 98
[2023-04-05] MEDS: hydrOXYzine PAM 25 MG Capsule 50 MG PO (23:04)
[2023-04-05] MEDS: traZODone 100 MG Tablet PO (23:04)
[2023-04-06] MEDS: Clindamycin HCl 150 MG Capsule 300 MG PO ×4 (04:55→23:25)
[2023-04-06 04:57] VITALS: BP 103/56; PULSE 72; RESP 16; TEMP 37; O2SAT 98
[2023-04-06 07:19] LABS: Absolute Lymphocyte Count 1.85 X10^3/uL (0.83-4.51); Absolute Neutrophil Count 1.3 X10^3/uL (2.0-7.7); Basophil# 0.02 X10^3/uL; Basophil% 0.5 % (0-1); Eosinophil# 0.15 X10^3/uL; Eosinophils% 4.1 % (0-5); Hematocrit 34.7 % (37-47); Hemoglobin 10.9 g/dL (12.0-15.0); Lymphocyte # 1.85 X10^3/ul (0.83-4.51); Lymphocyte % 50.5 % (19-41); Mean Corp Hgb Conc 31.4 g/dL (32-36); Mean Corpuscular Hgb 26.7 pg (27.0-32.0); Mean Platelet Vol. 11.6 fl (6.2-12.0); Monocyte# 0.35 X10^3/uL; Monocyte% 9.6 % (0-10); NRBC Flagged by Analyzer 0 % (0-5); Neutrophil # 1.29 X10^3/uL (2.7-7.7); Neutrophil % 35.3 % (47-70); Platelet Count 166 K/mm3 (150-450); RBC Distribution Width CV 14.9 % (11.6-14.6); RBC Distribution Width SD 46.6 fl (35.1-43.9); Red Blood Count 4.08 M/mm3 (4.2-5.4); White Blood Count 3.7 K/mm3 (4.4-11.0)
[2023-04-06 07:44] LABS: Anion Gap 2 (5-15); BUN 10 mg/dL (7-18); BUN/Creat Ratio 15.1 RATIO (10-20); Calcium,Total 8.6 mg/dL (8.5-10.1); Chloride 109 mmol/L (98-107); Creatinine, Serum 0.66 mg/dL (0.55-1.02); EST Glomerular Filtration Rate 108 mL/min (>60); Est Glom Filt Rate - Afr Amer 131 mL/min (>60); Estimated Creatinine Clearance 99.35 ml/min; Glucose 94 mg/dL (74-106); Potassium 3.9 mmol/L (3.5-5.1); Sodium Level 141 mmol/L (136-145)
[2023-04-06] MEDS: Methocarbamol 750 MG Tablet 1500 MG PO (08:30)
[2023-04-06 10:24] VITALS: BP 106/72; PULSE 83; RESP 16; O2SAT 98
[2023-04-06] MEDS: lamoTRIgine 150 MG Tablet PO (10:26)
--- NOTE | 2023-04-06 10:33 | PCM.PROGNOTE ---
Subjective Subjective Patient seen and examined. She had no complaints and had an uneventful night. She denies any withdrawal symptoms. Review systems otherwise negative. Objective Data Objective Data Vital Signs: Vital Signs Temp Pulse Resp BP Pulse Ox O2 Del Method 98.6 F 83 16 106/72 98 Room Air 04/06/23 04:57 04/06/23 10:24 04/06/23 10:24 04/06/23 10:24 04/06/23 10:24 04/06/23 10:24 Oxygen Delivery Method Room Air Weight: 115 lb 9.6 oz Body Mass Index (BMI) 20.5 Intake & Output: Intake and Output for Last 24 Hours 04/04/23 04/05/23 04/06/23 23:59 23:59 23:59 Intake Total 540 / 540 120 / 120 Balance 540 / 540 120 / 120 Lab / Micro Data Result Diagrams: 04/06/23 06:45 04/06/23 06:45 Labs: Laboratory Results - last 24 hr 04/05/23 12:15: WBC 7.1, RBC 4.18 L, Hgb 11.2 L, Hct 35.1 L, MCV 84.0, MCH 26.8 L, MCHC 31.9 L, RDW Std Deviation 44.9 H, RDW Coeff of Cyndy 14.6, Plt Count 180, MPV 11.3, Immature Gran % (Auto) 0.300, Neut % (Auto) 69.4, Lymph % (Auto) 20.3, [place] % (Auto) 7.2, Eos % (Auto) 2.5, Baso % (Auto) 0.3, Absolute Neuts (auto) 5.0, Absolute Lymphs (auto) 1.45, Nucleated RBC % 0 04/05/23 12:15: Sodium 138, Potassium 3.7, Chloride 103, Carbon Dioxide 29.0, Anion Gap 6, BUN 15, Creatinine 0.79, Estim Creat Clear Calc 83.00, Est GFR (MDRD) Af Amer 106, Est GFR (MDRD) Non-Af 88, BUN/Creatinine Ratio 18.9, Glucose 120 H, Calcium 9.5, Total Bilirubin 0.20, AST 19, ALT 20, Alkaline Phosphatase 89, Total Protein 7.8, Albumin 3.8, Globulin 4.0, Albumin/Globulin Ratio 1.0 04/05/23 12:15: Ethyl Alcohol 3.0 04/05/23 13:00: Urine Color Yellow, Urine Clarity Sl. Cloudy, Urine pH 6.0, Ur Specific [place] 1.030, Urine Protein 15 H, Urine Glucose (UA) Normal, Urine Ketones Negative, Urine Occult Blood Negative, Urine Nitrite Negative, Urine Bilirubin Negative, Urine Urobilinogen Normal, Ur Leukocyte Esterase 25 H, Urine RBC 0 SEEN, Urine WBC 0-5 SEEN, Ur Squamous Epith Cells 0-5 SEEN, Urine Bacteria RARE, Urine Mucus 0 SEEN, Urine Test Negative 04/05/23 13:00: Urine Opiates Screen NEGATIVE, Urine Methadone Screen NEGATIVE, Ur Barbiturates Screen NEGATIVE, Ur Phencyclidine Scrn NEGATIVE, Ur Amphetamines Screen POSITIVE H, MDMA (Ecstasy) Screen POSITIVE H, U Benzodiazepines Scrn NEGATIVE, Urine Cocaine Screen NEGATIVE, U Cannabinoids Screen NEGATIVE, Ur Drug Screen Comment 04/06/23 06:45: WBC 3.7 L, RBC 4.08 L, Hgb 10.9 L, Hct 34.7 L, MCV 85.0, MCH 26.7 L, MCHC 31.4 L, RDW Std Deviation 46.6 H, RDW Coeff of Cyndy 14.9 H, Plt Count 166, MPV 11.6, Immature Gran % (Auto) 0.000, Neut % (Auto) 35.3 L, Lymph % (Auto) 50.5 H, [place] % (Auto) 9.6, Eos % (Auto) 4.1, Baso % (Auto) 0.5, Absolute Neuts (auto) 1.3 L, Absolute Lymphs (auto) 1.85, Nucleated RBC % 0 04/06/23 06:45: Sodium 141, Potassium 3.9, Chloride 109 H, Carbon Dioxide 30.0, Anion Gap 2 L, BUN 10, Creatinine 0.66, Estim Creat Clear Calc 99.35, Est GFR (MDRD) Af Amer 131, Est GFR (MDRD) Non-Af 108, BUN/Creatinine Ratio 15.1, Glucose 94, Calcium 8.6 Physical Exam Const alert, oriented x3, no apparent distress and average body habitus General Appearance: cooperative HEENT normocephalic, head/scalp atraumatic, hearing grossly normal bilaterally, moist oral mucous membranes and oropharynx normal Eyes PERRL and EOMs intact bilaterally Neck no lymphadenopathy and supple Resp normal respiratory effort, normal air movement, no retractions, no use of accessory muscles and clear to auscultation bilaterally Cardio S1 normal heart sound, S2 normal heart sound and no murmurs Cardio Narrative: tachycardic GI normal to inspection, nondistended, normoactive bowel sounds, soft to palpation, non-tender and non-distended Extremity normal to inspection, full ROM and no clubbing, cyanosis or edema Skin Skin Narrative: Superficial resolving blisters and ulcerations on her upper extremities and left inner thigh. These are from staph infection which is resolving. Neuro oriented x3 and CN's II-XII intact bilaterally Sensorium / Orientation: awake and alert Motor Exam: strength 5/5 throughout Psych thought process normal, cooperative and affect normal Appearance: appropriate Assessment & Plan Assessment/Plan (1) Infection, skin, staph: (2) Opiate addiction: (3) Opiate withdrawal: PLAN: Plan #Acute opioid withdrawal On opioid withdrawal protocol with buprenorphine. Adjunctive meds for symptomatic relief. Urine tox positive for amphetamines and MDMA #Tachypnea and tachycardia: resolved. Was likely due to withdrawal symptoms #Superficial staph skin infection: Likely due to IV drug use. Was seen in the ED a few days ago and started on clindamycin. We will continue to finish the course. #Seizure disorder: On Lamictal DVT prophylaxis: Low risk. Encouraged to ambulate. Charges/Coding Visit Charges Inpatient E&M: 48758 Subs Hosp L2
[2023-04-06 10:47] VITALS: BP 106/72
[2023-04-06 17:11] VITALS: BP 115/76; PULSE 76; RESP 16; TEMP 36.7; O2SAT 100
[2023-04-06] MEDS: Gabapentin 300 MG Capsule PO (17:21)
[2023-04-06 21:38] VITALS: BP 110/67; PULSE 74; RESP 16; TEMP 36.5; O2SAT 97
[2023-04-07 04:02] VITALS: BP 97/66; PULSE 70; RESP 16; TEMP 36.6; O2SAT 98
[2023-04-07] MEDS: Clindamycin HCl 150 MG Capsule 300 MG PO ×3 (06:08→17:04)
[2023-04-07 09:12] VITALS: BP 114/73; PULSE 66; RESP 16; TEMP 36.4; O2SAT 99
[2023-04-07] MEDS: lamoTRIgine 150 MG Tablet PO (09:15)
--- NOTE | 2023-04-07 10:23 | PN_ITS ---
Subjective Subjective Patient seen and examined. She has no complaints today. She had an uneventful night. Review of systems otherwise negative. She has remained hemodynamically stable. Objective Data Objective Data Vital Signs: Vital Signs Temp Pulse Resp BP Pulse Ox O2 Del Method 97.6 F L 66 16 114/73 99 Room Air 04/07/23 09:12 04/07/23 09:12 04/07/23 09:12 04/07/23 09:12 04/07/23 09:12 04/07/23 09:12 Oxygen Delivery Method Room Air Weight: 115 lb 9.6 oz Body Mass Index (BMI) 20.5 Intake & Output: Intake and Output for Last 24 Hours 04/05/23 04/06/23 04/07/23 23:59 23:59 23:59 Intake Total 540 / 540 120 / 480 660 / 660 Balance 540 / 540 120 / 480 660 / 660 Lab / Micro Data Result Diagrams: 04/06/23 06:45 04/06/23 06:45 Physical Exam Const alert, oriented x3, no apparent distress and average body habitus General Appearance: cooperative HEENT normocephalic, head/scalp atraumatic, hearing grossly normal bilaterally, moist oral mucous membranes and oropharynx normal Eyes PERRL and EOMs intact bilaterally Neck no lymphadenopathy, supple and no JVD Lymph Lymphatic: no lymphadenopathy noted and no lymphedema noted Resp normal respiratory effort, normal air movement, no retractions, no use of accessory muscles and clear to auscultation bilaterally Cardio regular rate, regular rhythm, S1 normal heart sound, S2 normal heart sound and no murmurs GI normal to inspection, nondistended, normoactive bowel sounds, soft to palpation, non-tender and non-distended Extremity normal to inspection, full ROM, normal capillary refill, no clubbing, cyanosis or edema and no calf tenderness Skin Skin Narrative: Superficial resolving blisters and ulcerations on her upper extremities and left inner thigh. These are from staph infection which is resolving. Neuro oriented x3, CN's II-XII intact bilaterally and no focal motor deficits Sensorium / Orientation: awake and alert Motor Exam: strength 5/5 throughout Psych thought process normal, cooperative and affect normal Appearance: appropriate Assessment & Plan Assessment/Plan (1) Infection, skin, staph: (2) Opiate addiction: (3) Opiate withdrawal: PLAN: Plan #Acute opioid withdrawal * On opioid withdrawal protocol with buprenorphine. * Adjunctive meds for symptomatic relief. * Urine tox positive for amphetamines and MDMA * #Tachypnea and tachycardia: resolved. #Superficial staph skin infection: Likely due to IV drug use. Was seen in the ED a few days ago and started on clindamycin. We will continue to finish the course. #Seizure disorder: On Lamictal DVT prophylaxis: Low risk. Encouraged to ambulate. Charges/Coding Visit Charges Inpatient E&M: 10820 Subs Hosp L2
[2023-04-07 14:51] VITALS: BP 117/72; PULSE 102; RESP 16; TEMP 36.6; O2SAT 98
[2023-04-07] MEDS: Buprenorphine HCl 2 MG TAB.SUBL SL (14:52)
[2023-04-07] MEDS: Gabapentin 300 MG Capsule PO (14:52)
[2023-04-07] MEDS: Methocarbamol 750 MG Tablet 1500 MG PO (17:05)
[2023-04-07] MEDS: hydrOXYzine PAM 25 MG Capsule 50 MG PO (17:06)
[2023-04-07 23:56] VITALS: BP 110/71; PULSE 71; RESP 16; TEMP 36.7; O2SAT 100
[2023-04-08] MEDS: Clindamycin HCl 150 MG Capsule 300 MG PO (00:02)
[2023-04-08 03:23] VITALS: BP 97/69; PULSE 67; RESP 16; TEMP 36.4; O2SAT 100
[2023-04-08] MEDS: Buprenorphine HCl 2 MG TAB.SUBL SL (03:26)
[2023-04-08 08:54] VITALS: BP 120/77; PULSE 71; RESP 18; TEMP 36.6; O2SAT 98
[2023-04-08] MEDS: hydrOXYzine PAM 25 MG Capsule 50 MG PO (08:59)
[2023-04-08] MEDS: Methocarbamol 750 MG Tablet 1500 MG PO (08:59)
[2023-04-08] MEDS: lamoTRIgine 150 MG Tablet PO (08:59)
--- NOTE | 2023-04-08 11:32 | DCINST_ITS ---
Discharge Instructions Diet Discharge Diet: No restrictions Activity Discharge Activity: Return to Normal Activity Weight Bearing Status: Weight bearing as tolerated Dressing / Incision Call your doctor if you observe: Fever of 101 or Higher, Shortness of breath, Dizziness, Swelling in the ankles, Chest pain and Increased palpitations (irregular heartbeat) Follow Up Care Test Results: Test results from this visit will be discussed in further detail at your follow- up appointment, if applicable. Discharge Plan Admission Admit Date/Time: 04/05/23 14:00 Primary Reason for Your Visit: acute opioid withdrawal Attending Provider: Anuradha Reynoso Primary Care Provider: Ariela Nascimento Instructions Patient Instructions: ED Opioid Withdrawal Discharge Orders/Prescriptions Prescriptions: Continued lamotrigine [Lamictal] 150 mg Tablet 150 mg PO DAILY Rexulti 2 mg Tablet 2 mg PO DAILY Sublocade 100 mg/0.5 mL Solution, Extended Rel Syringe 100 mg SUBCUT QMONTH clindamycin HCl [Cleocin HCl] 300 mg capsule 300 mg PO Q6H Rx Instructions: staph infection Referrals / Follow Up: Ariela Nascimento [Other] Ariela Nascimento [Other] Disposition Disposition (needs filled in before D/C Order can be placed): Home, Self Care
--- NOTE | 2023-04-08 11:33 | PCM.DC.SUM ---
Providers Date of Admission: 04/05/23 Date of Discharge: 04/08/23 Primary Care Physician: Ariela Nascimento Reason For Visit: OPIATE DETOX Diagnosis Discharge Diagnosis (1) Infection, skin, staph: Status: Acute Code(s): L08.9 - Local infection of the skin and subcutaneous tissue, unspecified; B95.8 - Unspecified staphylococcus as the cause of diseases classified elsewhere (2) Opiate addiction: Status: Acute Code(s): F11.20 - Opioid dependence, uncomplicated (3) Opiate withdrawal: Status: Acute Code(s): F11.93 - Opioid use, unspecified with withdrawal Plan #Acute opioid withdrawal On opioid withdrawal protocol with buprenorphine. Adjunctive meds for symptomatic relief. Urine tox positive for amphetamines and MDMA #Tachypnea and tachycardia: resolved. #Superficial staph skin infection: Likely due to IV drug use. Was seen in the ED a few days ago and started on clindamycin. We will continue to finish the course. #Seizure disorder: On Lamictal DVT prophylaxis: Low risk. Encouraged to ambulate. Medications at Discharge Home Medications brexpiprazole 2 mg tablet (Rexulti) 2 mg PO DAILY MOOD 11/11/22 buprenorphine 100 mg/0.5 mL solution,exten.rel.subcutaneous syringe (Sublocade) 100 mg subcut QMONTH OPIOID ADDICITION 11/11/22 lamotrigine 150 mg tablet (Lamictal) 150 mg PO DAILY MOOD 11/11/22 clindamycin HCl 300 mg capsule (Cleocin HCl) 300 mg PO Q6H ANTIBIOTIC 04/05/23 Hospital Course Operations None Procedures None Summary of Care Provided Minutes Spent on Discharge: 45 Hospital Course: OSEAS PLATT, is a 32 F with a PMH as outlined including chronic substance abuse who was admitted via the ED on 04/05/2023 for opioid detox. She uses fentanyl daily. She shoots up fentanyl IV.? says she was recently seen in the ED for superficial skin infection due to the IV drug use. She was discharged home on oral clinddamycin.? She states she tried to detox at home but was unsuccessful because she came into the ED.? She denies any tremors or shakes, any abdominal pain or cramps or increased sweating.? Review of systems otherwise negative.? Vitals in the ED were blood pressure 160/94, pulse rate of 114, respiratory rate of 24 and temperature of 96.7 Fahrenheit.? She was saturating at 98% on room air.? CBC showed WBC of 7.1 with hemoglobin of 11.2 and platelets of 118.? Chemistry was unremarkable.? Urine tox was positive for amphetamines and MDMA. She was admitted to be managed for acute opiate withdrawal. She was placed on opioid withdrawal protocol with buprenorphine. She tolerated the 3-day detox process and did well. She was discharged on 04/08/2023 to follow-up with 1 AT on outpatient basis. Patient seen and examined prior to discharge. She had no complaints and had an uneventful night. Review of systems otherwise negative. Labs and vitals reviewed. Home medication reviewed and reconciled. Physical Exam Const alert, oriented x3, no apparent distress and average body habitus General Appearance: cooperative, comfortable and well kempt HEENT normocephalic, head/scalp atraumatic, hearing grossly normal bilaterally, moist oral mucous membranes and oropharynx normal Mouth: oral and palatal mucosa normal Eyes PERRL, EOMs intact bilaterally and conjunctivae normal Neck no lymphadenopathy, supple and no JVD Lymph Lymphatic: no lymphadenopathy noted and no lymphedema noted Resp normal respiratory effort, normal air movement, no retractions, no use of accessory muscles and clear to auscultation bilaterally Cardio regular rate, regular rhythm, S1 normal heart sound, S2 normal heart sound and no murmurs Cardio Narrative: tachycardic GI normal to inspection, nondistended, normoactive bowel sounds, soft to palpation, non-tender and non-distended Extremity normal to inspection, full ROM, normal capillary refill, no clubbing, cyanosis or edema and no calf tenderness Skin Skin Narrative: Superficial resolving blisters and ulcerations on her upper extremities and left inner thigh. These are from staph infection which is resolving. Neuro oriented x3, CN's II-XII intact bilaterally and no focal motor deficits Sensorium / Orientation: awake and alert Motor Exam: strength 5/5 throughout Psych thought process normal, cooperative and affect normal Appearance: appropriate Weight / BMI Weight Weight: 115 lb 9.6 oz Body Mass Index (BMI) 20.5 ABG / Lab / Microbiology Data Result Diagrams: 04/06/23 06:45 04/06/23 06:45 D/C Instructions Discharge Diet: No restrictions Discharge Activity: Return to Normal Activity Weight Bearing Status: Weight bearing as tolerated Call your doctor if you observe: Fever of 101 or Higher, Shortness of breath, Dizziness, Swelling in the ankles, Chest pain and Increased palpitations (irregular heartbeat) Meaningful Use Info Meaningful Use Diagnoses (Choose all that apply): None applicable Discharge Plan Admission Admit Date/Time: 04/05/23 14:00 Primary Reason for Your Visit: acute opioid withdrawal Attending Provider: Anuradha Reynoso Primary Care Provider: Ariela Nascimento Instructions Patient Instructions: ED Opioid Withdrawal Discharge Orders/Prescriptions Prescriptions: Continued lamotrigine [Lamictal] 150 mg Tablet 150 mg PO DAILY Rexulti 2 mg Tablet 2 mg PO DAILY Sublocade 100 mg/0.5 mL Solution, Extended Rel Syringe 100 mg SUBCUT QMONTH clindamycin HCl [Cleocin HCl] 300 mg capsule 300 mg PO Q6H Rx Instructions: [facility] infection Referrals / Follow Up: Ariela Nascimento [Other] Ariela Nascimento [Other] Disposition Disposition (needs filled in before D/C Order can be placed): Home, Self Care Charges/Coding Visit Charges Inpatient E&M: 63912 Disch Hosp >30min
== END 2023-04-08 11:48 | disposition home or self-care (01) | DRG 773 ==
LOC: ED 13:00 → MS3 14:09
PROVIDERS: Admitting Provider Student in an Organized Health Care Education/Training Program; Emergency Provider Emergency Medicine; Visit Provider Student in an Organized Health Care Education/Training Program
DX: F11.23 Opioid dependence with withdrawal (principal); L97.119 Non-pressure chronic ulcer of right thigh with unspecified severity; G40.909 Epilepsy, unspecified, not intractable, without status epilepticus; F31.9 Bipolar disorder, unspecified; L97.129 Non-pressure chronic ulcer of left thigh with unspecified severity; F17.210 Nicotine dependence, cigarettes, uncomplicated; L08.9 Local infection of the skin and subcutaneous tissue, unspecified; B95.8 Unspecified staphylococcus as the cause of diseases classified elsewhere
CPT/HCPCS: 36415; 80048; 80053; 80307; 81001; 81025; 82077; 85025; 99284; 99406

== ENCOUNTER → 2023-10-01 | Outpatient (CLI) | payer MEDICAID, SELFPAY ==
[2023-10-01 11:50] LABS: Absolute Lymphocyte Count 1.43 X10^3/uL (0.83-4.51); Absolute Neutrophil Count 2.4 X10^3/uL (2.0-7.7); Basophil# 0.01 X10^3/uL; Basophil% 0.2 % (0-1); Eosinophil# 0.18 X10^3/uL; Eosinophils% 4.2 % (0-5); Hematocrit 36.6 % (37-47); Hemoglobin 11.9 g/dL (12.0-15.0); Lymphocyte # 1.43 X10^3/ul (0.83-4.51); Lymphocyte % 33.5 % (19-41); Mean Corp Hgb Conc 32.5 g/dL (32-36); Mean Corpuscular Volume 89.3 fL (81-99); Mean Platelet Vol. 11.4 fl (6.2-12.0); Monocyte# 0.25 X10^3/uL; Monocyte% 5.9 % (0-10); NRBC Flagged by Analyzer 0 % (0-5); Neutrophil # 2.39 X10^3/uL (2.7-7.7); Platelet Count 159 K/mm3 (150-450); RBC Distribution Width CV 12.4 % (11.6-14.6); RBC Distribution Width SD 40.2 fl (35.1-43.9); White Blood Count 4.3 K/mm3 (4.4-11.0)
[2023-10-01 12:00] LABS: Prothrombin Time (Protime)PT. 13.6 SECONDS (11.7-14.9)
[2023-10-01 12:16] LABS: ALB/GLOB Ratio 1.1 RATIO (0.9-2.4); AST(SGOT) 16 U/L (15-37); Alanine Aminotransfer ALT/SGPT 15 U/L (13-56); Albumin, Serum 3.9 g/dL (3.2-5.0); Alkaline Phosphatase 77 U/L (45-117); Anion Gap 4 (5-15); BUN 7 mg/dL (7-18); BUN/Creat Ratio 9.1 RATIO (10-20); Calcium,Total 8.8 mg/dL (8.5-10.1); Chloride 109 mmol/L (98-107); Creatinine, Serum 0.77 mg/dL (0.55-1.02); EST Glomerular Filtration Rate 90 mL/min (>60); Est Glom Filt Rate - Afr Amer 109 mL/min (>60); Globulin 3.4 g/dL (2.2-4.2); Glucose 84 mg/dL (74-106); Potassium 4.2 mmol/L (3.5-5.1); Protein, Total 7.3 g/dL (6.4-8.2); Sodium Level 141 mmol/L (136-145)
[2023-10-01 12:48] LABS: HIV - WCH Non-Reactive (Nonreactive); Hepatitis B Surface Antibody Non-Reactive; Hepatitis B Surface Antigen Non-Reactive (Nonreactive)
[2023-10-02 06:08] LABS: Hepatitis A AB, Total Negative (Negative)
== END | disposition home or self-care (01) ==
PROVIDERS: Referring Provider Family Medicine; Visit Provider Family Medicine
DX: B18.2 Chronic viral hepatitis C (principal)
CPT/HCPCS: 36415; 80053; 85025; 85610; 86703; 86706; 86708; 87340

== ENCOUNTER 2023-11-18 01:35 | Emergency (ER) | payer MEDICAID, SELFPAY ==
[2023-11-18 01:38] VITALS: BP 143/87; PULSE 100; RESP 16; TEMP 36.8; O2SAT 98; BMI 20.4
--- NOTE | 2023-11-18 02:11 | ED.VIS.LOWEX ---
HPI History of Present Illness Chief Complaint: Wound Informant: patient Narrative Narrative: 33-year-old female presents with ingrown toenail of the left great toe with infection. She states that she had her toenails removed as a child. They grew back. She notes now the left medial aspect of the toenail is swollen and painful and has drainage. [facility] Medical History Anxiety Bipolar disorder Depression Infection, skin, staph Opiate addiction Smoker Substance abuse Home Medications buprenorphine 100 mg/0.5 mL solution,exten.rel.subcutaneous syringe (Sublocade) 100 mg subcut QMONTH OPIOID ADDICITION 11/11/22 [History Last Taken 2 Months Ago ~02/03/23] cephalexin 500 mg capsule 500 mg PO Q6 #28 CAPSULES 11/18/23 [Rx Last Taken Unknown] Allergy/AdvReac Type Severity Reaction Status Date / Time sulfamethoxazole Allergy Vomiting Verified 11/18/23 01:38 [From Bactrim] trimethoprim [From Bactrim] Allergy Vomiting Verified 11/18/23 01:38 Social History household members: none Smoking Status: Current every day smoker tobacco type: cigarettes substance use type: former substance user ROS ROS ED Constitutional Constitutional ED: Denies chills or weight loss Eyes Eyes: Denies change in vision or diplopia ENT ENT ED: Denies ear pain, rhinorrhea or sore throat Cardiovascular Cardiovascular: Denies chest pain, orthopnea, palpitations or racing heartbeat Respiratory/Chest Respiratory/Chest: Denies cough, dyspnea or orthopnea Gastrointestinal Gastrointestinal: Denies abdominal pain, diarrhea, nausea or vomiting Genitourinary Genitourinary ED: Denies dysuria, hematuria or urinary frequency Musculoskeletal Musculoskeletal: Denies arthralgias or myalgias Integumentary Reports other Details: See history of present illness ; Denies abscess or rash Neurologic Neurologic: Denies headache(s) or weakness Psychiatric Psychiatric: Denies anxiety, depression, suicidal ideation or suicidal thoughts Endocrine Endocrinology: Denies polydipsia, polyphagia or polyuria Allergic/Immunologic Allergic/Immunologic ED: Denies mouth swelling, tongue swelling or urticaria EXAM Physical Exam Const Vital Signs: 11/18/23 01:38 Temperature 98.3 F Temperature Source Temporal Pulse Rate 100 Respiratory Rate 16 Blood Pressure 143/87 H Blood Pressure Mean 105 Pulse Ox 98 Oxygen Delivery Method Room Air Positive well nourished and well developed General Appearance ED: well developed HEENT Reports normocephalic, head/scalp atraumatic and moist mucous membranes Eyes PERRL and EOMs intact bilaterally Neck no lymphadenopathy, supple and no JVD Resp normal respiratory effort and clear to auscultation bilaterally Cardio regular rate, regular rhythm and no murmurs GI normal to inspection, nondistended, normoactive bowel sounds and non-tender Palpation: soft Back/Spine no CVA tenderness and normal ROM Extremity Extremity Narrative: Left great toe demonstrates an ingrown toenail medially. There is a mild amount of swelling and redness of the skin surrounding the medial aspect. There is some crusted drainage. No lymphangitic streaking. The tissue is still soft. General Extremety ED: Negative for edema General Extremity: Negative for edema Neuro oriented x3 and CN's II-XII intact bilaterally Sensorium / Orientation: alert Motor Exam: strength 5/5 throughout Psych mental status grossly normal Mood & Affect: Negative for depressed or tearful Skin no rashes or lesions noted and no wounds MDM MDM MDM Narrative Medical decision making narrative: Patient was advised to do warm soapy soaks. Antibiotic ointment. I completes her on Keflex. Advised her to have podiatry follow-up to talk about removing the ingrown toenail. She notes understanding of the plan Discharge Plan Triage Chief Complaint: Wound ED Provider: Ayden Madison Dx/Rx/DC Orders Clinical Impression: Paronychia due to ingrown nail Instructions: ED Toenail Ingrown Infec Abx Only, ED Paronychia of the Finger or Toe Prescriptions: New cephalexin [cephalexin] 500 mg capsule 500 mg PO Q6 Qty: 28 0RF No Action Sublocade 100 mg/0.5 mL Solution, Extended Rel Syringe 100 mg SUBCUT QMONTH Primary Care Provider: Ariela Nascimento Referrals: Ariela Nascimento [Other] Ayden Mckeon DPM [Med Staff - Active Staff] - As soon as possible Activity Restrictions/Additional Instructions: As talked about I would recommend warm soapy water soaks I recommend antibiotic ointment at least once a day to the area. Take the entire course of the antibiotic Please follow-up with podiatry as you should have your ingrown nails evaluated Disposition Disposition: Home, Self Care Capacity Legal Galley Worker Reflex Medical hold order details:: IF a medical hold is selected below, a suggested order for a MEDICAL HOLD will reflex upon signing the document. Next of kin: [place] law dictates a PRIORITY LIST for identifying legal decision-maker/legal next of kin in the following order (LNOK): 1st: The patient?s legal guardian, if any 2nd: The patient's spouse (if status is questionable, consult Risk Management) 3rd: The patient?s adult child(alexandra) (majority, if multiple children) 4th: The patient?s parents 5th: The patient?s adult siblings (majority, if multiple children siblings)
[2023-11-18] MEDS: Cephalexin 250 MG Capsule 500 MG PO (02:15)
[2023-11-18 02:18] VITALS: PULSE 80; RESP 16; O2SAT 94
== END 2023-11-18 02:19 | disposition home or self-care (01) ==
LOC: ED 02:13
PROVIDERS: Emergency Provider Emergency Medicine; Visit Provider Emergency Medicine
DX: L03.032 Cellulitis of left toe (principal); F17.210 Nicotine dependence, cigarettes, uncomplicated; L60.0 Ingrowing nail
CPT/HCPCS: 99282